=== PATIENT | female | born 1945 | race Native Hawaiian/Other Pacific Islander ===

== ENCOUNTER 2016-08-08 08:10 | Outpatient (CLI) | payer OTHER | END 2016-08-08 19:07 | disposition home or self-care (01) | LOC: CT 08:10 | PROC: BP1 Imaging, Non-Axial Upper Bones, Fluoroscopy (ICD-10-PCS; principal; 2016-08-08) | DX: M19.011 Primary osteoarthritis, right shoulder (principal); M75.41 Impingement syndrome of right shoulder; M75.120 Complete rotator cuff tear or rupture of unspecified shoulder, not specified as traumatic ==

== ENCOUNTER 2018-01-09 08:59 | Outpatient (CLI) | payer OTHER | END 2018-01-09 19:24 | disposition home or self-care (01) | LOC: MAMMO 08:59 | DX: Z12.31 Encounter for screening mammogram for malignant neoplasm of breast (principal) ==

== ENCOUNTER 2018-07-31 13:51 | Outpatient (CLI) | payer OTHER | END 2018-07-31 21:37 | disposition home or self-care (01) | LOC: RAD 13:51 | DX: Z13.820 Encounter for screening for osteoporosis (principal); Z78.0 Asymptomatic menopausal state ==

== ENCOUNTER 2020-09-07 13:09 | Outpatient (CLI) | payer OTHER | END 2020-09-07 22:50 | disposition home or self-care (01) | LOC: US 13:09 | PROVIDERS: ATTEND Internal Medicine | DX: R53.83 Other fatigue (principal) ==

== ENCOUNTER 2021-09-13 10:34 | Outpatient (CLI) | payer OTHER | END 2021-09-13 19:00 | disposition home or self-care (01) | LOC: RAD 10:34 | PROVIDERS: ATTEND Nurse Practitioner Family | DX: M25.531 Pain in right wrist (principal); W19.XXXA Unspecified fall, initial encounter ==

== ENCOUNTER 2022-01-23 15:49 | Observation (INO) | payer OTHER ==
[~2022-01-23] VITALS: Ht 157.5 cm; Wt 79.6 kg
[2022-01-23 15:50] VITALS: BP 161/94
[2022-01-23 16:42] VITALS: BP 133/67
[2022-01-23 16:42] LABS: PLATELET COUNT 300 K/uL (152-353); POTASSIUM 3.5 mmol/L (3.6-5.2)
[2022-01-23 17:50] VITALS: BP 112/49
[2022-01-23 20:00] VITALS: BP 162/75; TEMP 98.8
[2022-01-23 20:49] VITALS: BP 162/75; TEMP 98.8; Ht 157.5 cm; Wt 79.6 kg
[2022-01-24] VITALS: BP 150/61; TEMP 98.5
[2022-01-24 04:00] VITALS: BP 143/64; TEMP 98
[2022-01-24 08:00] VITALS: BP 147/69; TEMP 98.9
[2022-01-24] MEDS ORDERED: AMLODIPINE BESYLATE PO (08:09)
[2022-01-24] MEDS ORDERED: GABA300C2 PO (08:10)
[2022-01-24] MEDS ORDERED: LEVO0.1T6 PO (08:11)
[2022-01-24] MEDS ORDERED: NITR0.4S SL (08:11)
[2022-01-24] MEDS ORDERED: LEVO0.0723 PO (08:11)
[2022-01-24] MEDS ORDERED: LIPITOR40 MG PO (08:12)
[2022-01-24] MEDS ORDERED: MELOXICAM7.5 MG PO (08:13)
[2022-01-24] MEDS ORDERED: IRBE150T4 PO (08:13)
[2022-01-24] MEDS ORDERED: EDLUAR5 MG SL (08:15)
[2022-01-24] MEDS ORDERED: PHENOBARB97.2 MG PO (08:15)
[2022-01-24] MEDS ORDERED: CODESYP18 PO (08:16)
[2022-01-24] MEDS ORDERED: PREDNISONE10 M1 PO (08:17)
[2022-01-24] MEDS ORDERED: AZIT250T3 PO (08:18)
[2022-01-24] MEDS ORDERED: DOXYCYCL HYC100 M1 PO (08:19)
== END 2022-01-24 09:45 | disposition home or self-care (01) ==
LOC: ED 15:49 → MED/SURG 18:00
PROVIDERS: ADMIT Emergency Medicine Emergency Medical Services; ATTEND Internal Medicine
DX: U07.1 COVID-19 (principal); I10 Essential (primary) hypertension; E03.8 Other specified hypothyroidism; G40.802 Other epilepsy, not intractable, without status epilepticus
CPT/HCPCS: 36415; 80053; 82728; 83735; 84484; 85027; 85379; 86140; 87040; 87502; 87635; 93005; 94760; 96360; 96361; 96365; 96372; 96375; 99220; 99284; G0378; J0696; J1650; J2930; U0003

== ENCOUNTER 2022-01-24 09:54 | Outpatient (CLI) | payer OTHER ==
[~2022-01-24] VITALS: Ht 157.5 cm; Wt 79.6 kg
[~2022-01-24 09:54] MED LIST: AMLODIPINE BESYLATE PO; AZIT250T3 PO; CODESYP18 PO; DOXYCYCL HYC100 M1 PO; EDLUAR5 MG SL; GABA300C2 PO; IRBE150T4 PO; LEVO0.0723 PO; LEVO0.1T6 PO; LIPITOR40 MG PO; MELOXICAM7.5 MG PO; NITR0.4S SL; PHENOBARB97.2 MG PO; PREDNISONE10 M1 PO
[2022-01-24 10:10] VITALS: BP 154/83; TEMP 98.8
[2022-01-24 10:55] VITALS: BP 144/73; TEMP 98.6
[2022-01-24 11:15] VITALS: BP 151/72; TEMP 98.5
[2022-01-24 12:15] VITALS: BP 157/76; TEMP 98.1
== END 2022-01-24 20:37 | disposition home or self-care (01) ==
LOC: INF 09:54
PROVIDERS: ATTEND Internal Medicine
DX: Z23 Encounter for immunization (principal); U07.1 COVID-19
CPT/HCPCS: 96374; Q0222